=== PATIENT | female | born 1970 | race Caucasian/White ===

== ENCOUNTER → 2024-06-11 10:12 | Outpatient (REF) | payer BC, SELFPAY | LOC: RCS 10:12 | PROVIDERS: ATTENDING PHYSICIAN Nurse Practitioner Family; FAMILY PHYSICIAN Family Medicine | DX: Z12.31 Encounter for screening mammogram for malignant neoplasm of breast (principal); R01.1 Cardiac murmur, unspecified | CPT/HCPCS: 93306 ==

== ENCOUNTER → 2024-06-27 13:06 | Outpatient (REF) | payer BC, SELFPAY | LOC: RCS 13:06 | PROVIDERS: ATTENDING PHYSICIAN Internal Medicine Cardiovascular Disease; FAMILY PHYSICIAN Family Medicine | DX: R06.02 Shortness of breath (principal) | CPT/HCPCS: 93017; 93350 ==

== ENCOUNTER → 2024-12-20 08:27 | Outpatient (REF) | payer BC, SELFPAY ==
--- NOTE | 2024-12-20 09:34 | PTCARENOTE ---
Pt here for Echo with Bubble Study. Right antecubital 22 G PC iv site inserted , site clear, no redness, no edema. Bubble study completed per protocol with aseptic technique, pt tolerated procedure well. Right [facility] D/C ed at 0935, site clear, no
redness, no edema. Pressure held, no bleeding, 2x2 applied and taped. Pt offers no complaints.
== END ==
LOC: RCS 08:27
PROVIDERS: ATTENDING PHYSICIAN Internal Medicine Cardiovascular Disease; FAMILY PHYSICIAN Family Medicine
DX: I36.1 Nonrheumatic tricuspid (valve) insufficiency (principal)
CPT/HCPCS: 93307

== ENCOUNTER → 2025-01-10 15:33 | Outpatient (REF) | payer BC, SELFPAY | LOC: RAD 15:33 | PROVIDERS: ATTENDING PHYSICIAN Internal Medicine Cardiovascular Disease; FAMILY PHYSICIAN Family Medicine | DX: Q27.30 Arteriovenous malformation, site unspecified (principal) | CPT/HCPCS: 71275; Q9967 ==